=== PATIENT | male | born 1935 | race Caucasian/White ===

== ENCOUNTER 2019-11-07 15:19 | Inpatient (IN) | payer OTHER ==
[~2019-11-07] VITALS: Ht 170.2 cm; Wt 73.0 kg
[2019-11-07] MEDS ORDERED: PAIN RELIEF325 MG PO (15:37)
[2019-11-07] MEDS ORDERED: PROAIR HFA8.5 GM INH (15:39)
[2019-11-07] MEDS ORDERED: NORVASC 2.5 MG2.5 M1 PO (15:41)
[2019-11-07] MEDS ORDERED: AUGMENTIN 875-1 EACH PO (15:43)
[2019-11-07] MEDS ORDERED: ASA81BEC PO (15:44)
[2019-11-07] MEDS ORDERED: ATENOLOL 100MG100 MG PO (15:45)
[2019-11-07] MEDS ORDERED: BACLOFEN 10MG T10 MG PO (15:46)
[2019-11-07] MEDS ORDERED: CALCIUM CARBON500 MG PO (15:47)
[2019-11-07] MEDS ORDERED: CAPSAICIN42.5 GM TOP (15:48)
[2019-11-07] MEDS ORDERED: QUESTRAN PACKET4 GM PO (15:50)
[2019-11-07] MEDS ORDERED: CHLORTHALIDONE25 MG PO (15:50)
[2019-11-07] MEDS ORDERED: CRESTOR5 MG PO (15:51)
[2019-11-07] MEDS ORDERED: VOLTAREN GEL 1100 G1 TOP (15:54)
[2019-11-07] MEDS ORDERED: DICLOFENAC 0.1% EA. EYE (16:03)
[2019-11-07] MEDS ORDERED: DULCOLAX STOOL100 M1 PO (16:04)
[2019-11-07] MEDS ORDERED: FOLIC ACID1 MG PO (16:05)
[2019-11-07] MEDS ORDERED: PROSCAR 5MG TABL5 M1 PO (16:05)
[2019-11-07] MEDS ORDERED: IPRAT-ALBUT 0.5-3 ML NEB (16:07)
[2019-11-07] MEDS ORDERED: CULTURELLE KID1 EAC1 PO (16:11)
[2019-11-07] MEDS ORDERED: LIDOCAINE 2%2 %/5 GM TOP (16:17)
[2019-11-07] MEDS ORDERED: LORATIDINE 10 M10 M1 PO (16:18)
[2019-11-07] MEDS ORDERED: LOPERAMIDE2 MG PO (16:18)
[2019-11-07] MEDS ORDERED: MAGNESIUM250 M1 PO (16:19)
[2019-11-07] MEDS ORDERED: SUPER THERAVIT1 EACH PO (16:20)
[2019-11-07] MEDS ORDERED: OMEPRAZOLE 20 M20 M1 PO (16:22)
[2019-11-07] MEDS ORDERED: PERCOCET 5-3251 EACH PO ×2 (16:23→16:27)
[2019-11-07] MEDS ORDERED: RAYOS5 MG (16:39)
[2019-11-07] MEDS ORDERED: GAS RELIEF80 MG PO (16:40)
[2019-11-07] MEDS ORDERED: TOBI PODHALER28 MG (16:43)
[2019-11-07] MEDS ORDERED: VITAMIN D3400 UNI2 PO (16:44)
[2019-11-07 18:31] VITALS: BP 136/66
--- NOTE | 2019-11-07 19:53 | NUR ---
PATIENT ARRIVED TO UNIT VIA W/C. ALERT AND ORIENTED X4. ORIENTED TO ROOM AND BED CONTROLS. CHAIR ALARM IN PLACE. CALL LIGHT WITHIN REACH.
[2019-11-07 20:12] VITALS: BP 141/72
--- NOTE | 2019-11-08 00:36 | NUR ---
ASSUMED CARE AT 1930. PATIENT IN W/C. PROPELS SELF EASILY AROUND IN ROOM. TAKES PILLS WHOLE, LARGE ONES SEPARATE. KNOWS MEDICINE ROUTINE. EDUCATED IN REHAB ROUTINE, INCLUDING MEAL TIMES, WHEN THERAPIES START TOMORROW, WAIT FOR NURSE BEFORE RISING. NEEDS CUEING WITH LOCKING W/C. C/O HX CHRON'S. TO TOILET TO HAVE BM AND VOIDED. DOES OWN DENTURE CARE. HAS ONE HEARING AIDE. VERY [place] EVEN WITH HEARING AIDE. U/A OBTAINED. PVR WAS 550, C/O PROSTATE PROBLEMS, ON PROSCAR. WILL TRY AGAIN LATER. WILL TRY URINAL LATER. WEARS O2 2L/NC AT HS ONLY. HAD BREATHING TREATMENTS PER ORDER. MEDICATED FOR PAIN. HOURLY ROUNDS CONTINUE. BED ALARM ON. CALL LITE IN REACH.
[2019-11-08 00:54] LABS: URINE BILIRUBIN NEGATIVE (Negative); URINE BLOOD 1+ (Negative); URINE CLARITY CLEAR; URINE COLOR YELLOW; URINE GLUCOSE-RANDOM NEGATIVE (Negative); URINE KETONES NEGATIVE (Negative); URINE LEUKOCYTES-REFLEX NEGATIVE (Negative); URINE NITRITE-REFLEX NEGATIVE (Negative); URINE PROTEIN TRACE (Negative); URINE UROBILINOGEN 0.2 E.U./dl (0.2-1.0)
[2019-11-08 01:32] LABS: BACTERIA-REFLEX >30 Many /HPF (None Seen); CASTS None Seen /LPF (None Seen); MUCUS 4-6 Moderate strn/LPF (None Seen); SQUAMOUS 0-3 Few /LPF (0-3); WBC CLUMPS Few (None Seen)
[2019-11-08 01:33] LABS: CRYSTALS None Seen /LPF (None Seen)
[2019-11-08 04:12] LABS: HEMATOCRIT 39.5 % (42.0-52.0); MCH 28.6 pg (26.0-34.0); MCHC 32.8 g/dL (28.0-37.0); MCV 87.3 fL (80.0-100.0); MPV 9.5 fl. (7.2-11.1); RBC 4.53 mil/uL (4.50-6.00); RDW-CV 15.8 % (10.5-14.5); WBC 13.9 thou/uL (4.0-11.0)
[2019-11-08 04:19] LABS: CALCIUM 8.7 mg/dL (8.5-10.1); CREATININE 1.7 mg/dL (0.6-1.3)
--- NOTE | 2019-11-08 04:44 | NUR ---
VOIDED 375 PER URINAL. BLADDER SCANNED IMMEDIATELY AFTER, 575 ML. PATIENT REFUSED CATHETERIZATION, EVEN WHEN EXPLAINED IT WOULD BE "IN AND OUT" OR JUST A STRAIGHT CATH. PATIENT STATES, "I JUST GOT THAT CATHETER OUT, YOU ARE NOT GONNA PUT ANOTHER ONE IN."
--- NOTE | 2019-11-08 05:19 | NUR ---
ONLY SLEPT FOR A FEW HOURS IN BED. SLEEPING IN W/C WITH LEGS ON HIS BED. WOULD NOT OFFLOAD BOTTOM DESPITE EDUCATION REGARDING SKIN CARE AND OFFER TO GO TO RECLINER. NEEDS REMINDERS EVERY TIME TO LOCK BRAKES. IMPULSIVE AND LACKS INSIGHT TO SAFETY NEEDS AT TIMES. MUCH CUEING GIVEN THROUGH SHIFT. NO FURTHER VOIDS SINCE LAST NOTE. TAKES BREATHING TREATMENTS WITHOUT DIFF. NO FURTHER C/O PAIN. HOURLY ROUNDS CONTINUE. BED ALARM ON. CALL LITE IN REACH.
[2019-11-08 08:39] VITALS: BP 122/67
--- NOTE | 2019-11-08 15:52 | NUR ---
ASSUMMED CARE OF PT AT 0730, PT ALERT AND ORIENTED, IMPULSIVE, UP WITH GB AND CANE/WALKER, PT TAKING FOOD AND FLUIDS WELL, PT ASK QUESTIONS AND HAS CONCERNS ABOUT WHY THINGS ARE BEING DONE, PT DENIED PAIN THIS SHIFT, REFUSED OINTMENTS TO SHOULDERS, PT O2 SATS 93-94 % ON RA, PT VOIDED IN TOILET FOR THERAPY THIS AM, PT ENCOURAGED TO ATTEMPT TO VOID THIS AFTERNOON, PT VOIDED STANDING AT TOILET 200CC OF YELLOW URINE AT 1420, PT SCANNED FOR 691CC AND PT ST CATHED FOR 625CC. PT DOES NOT SEEM TO UNDERSTAND THE REASON HE NEEDS TO BE CATHED, EDUCATION DONE AND WILL NEED REINFORCEMENT. PT PARTICPATED IN ALL THERAPIES BUT QUESTIONS WHY HE NEEDS THE THERAPIES, HERE THIS PM, HOURLY ROUNDING COMLPETED, ALARMS ON FOR SAFETY, ASSESSMENT COMPLETE, WILL CONTINUE TO MONITOR.
[2019-11-08 20:11] VITALS: BP 146/65
--- NOTE | 2019-11-08 22:38 | NUR ---
ASSUMED CARE AT 1930. PATIENT IN W/C. MORE COMPLIANT WITH SAFETY PRECAUTIONS. UP TO TOILET WITH CANE, GAIT BELT. HAD LOOSE BM, STATES LONG HISTORY OF CHRON'S. THEN STATED THAT HE WOULD JUST TAKE "ONE OF HIS PILLS" WHICH HE PRODUCED WHICH WAS GENERIC IMMODIUM. HE STATES HE IS TO TAKE ONE AFTER EACH LIQUID BM UP TO 8/DAY. CALL PLACED TO DR. HARVEY, ORDERS RECEIVED FOR IMMODIUM HE TAKES AT HOME. PATIENT TOLD TO SEND MEDS HOME AND NOT TAKE HIS MEDS, AND ONLY TAKE OURS. ONE DOSE OF IMMODIUM GIVEN BY THIS NURSE FROM HOSPITAL STOCK SOON POSSIBLE AFTER ORDER RECEIVED, SEE MAR. AFTER TAKING HOSPITAL DOSE OF IMMODIUM, HE STATED HE TOOK ONE EARLIER, BUT DIDN'T REMEMBER WHEN. INSTRUCTIONS AGAIN REINFORCED THAT HE IS TO ONLY TAKE HOSPITAL MEDS SO NOT TO DOUBLE DOSE. PATIENT REFUSED TO HAVE HOME MEDS SENT TO PHARMACY, AND PROMISES THEY WILL BE SENT HOME TOMORROW. BLADDER SCANNED AFTER VOIDING WITH BM, 444 ML OBTAINED. HE STATES HE HAS NO SENSATION WHEN HE HAS TO VOID, AND IS RELUCTANT TO HAVE CATHETERIZATION WITH C/O CONCERN OF INFECTION. EDUCATED THAT LEAVING URINE IN THE BLADDER WILL LEAD TO INFECTIONS, AND NEED TO EMPTY BLADDER. STATES HE WAS TOLD TO DRINK 2 LITERS OF FLUID A DAY AND HE HAS NOT BEEN DOING THAT WHILE HERE. CHEWS PILLS DESPITE EDUCATION THAT CHEWING ANTIBIOTICS CAN CHANGE THE ONSET AND DURATION OF THE MEDS. DENIES PAIN, BUT DID ALLOW VOLTERAN OINTMENT TO BACK AND SHOULDERS. IN W/C ON WAFFLE CUSHION. HOURLY ROUNDS CONTINUE. BED ALARM ON. CALL LITE IN REACH.
--- NOTE | 2019-11-08 23:59 | NUR ---
PATIENT STATES THAT HAS HAD A TURP SOMETIME AFTER 2005 WHICH IS WHEN [place], BUT HE COULD NOT GET MORE SPECIFIC THAN THAT. HE DENIES ANY PROBLEMS WITH VOIDING UNTIL 10 DAYS AGO WHEN HE WENT TO [facility], ALTHOUGH HE STATES THAT HE DOES NOT HAVE THE SENSATION THAT IS BLADDER IF NOT EMPTIED. EDUCATION ABOUT URINARY RETENTION GIVEN AND NEED FOR CATH TO EMPTY BLADDER TO PREVENT INFECTION OR INJURY.
--- NOTE | 2019-11-09 05:02 | NUR ---
RESTED IN BED AFTER ABOUT 0100. DENIES SLEEPING. RESTLESS THROUGH NIGHT. UP THREE TIMES WITH LOOSE BMS THAT HE ATTRIBUTES TO CHRON'S DISEASE. HAS TAKEN A TOTAL OF THREE IMMODIUM FROM THIS NURSE. TOLERATES BREATHING TREATMENTS WELL. VOIDS SOME WITH BMS. DOES OWN HYGIENE. NEEDED CUEING TO USE SOAP WITH WASHING HANDS. UP WITH CANE, UNSTEADY AT TIMES, MAINLY BECAUSE HE IS IN SUCH A HURRY TO HAVE BM. WEARING PULLUPS. MEDICATED ONCE FOR PAIN, SEE JAN. HOURLY ROUNDS CONTINUE. BED ALARM ON. CALL LITE IN REACH AND PATIENT HAS BEEN USING IT APPROPRIATELY THIS SHIFT. THUS FAR MUCH LESS IMPULSIVE COMPARED TO LAST NIGHT.
[2019-11-09 07:51] VITALS: BP 113/60
--- NOTE | 2019-11-09 16:16 | NUR ---
ASSUMMED CARE OF PT AT 0730, PT ALERT AND ORIENTED, FORGETFUL, IMPULSIVE, PT TRANSFERS WITH SBA, GB WALKER, PT DENIES PAIN AND NEED FOR PAIN OINTMENTS, PT HAD BM X 2 THIS SHIFT, PT DID SET OFF ALARMS X 2 AND FOUND STANDING WHEN ENTERED ROOM, PT DOES USE CALL LIGHT APPROPRIATELY AT TIMES, PT COMPLAINS OF FATIGUE AND STATES HE NEEDS TO GO HOME HE CAN'T SLEEP IN HOSPITAL, PT DID SLEEP THIS PM, AT 1130 PT DID VOID 400CC, SCANNED FOR 641 CC, AND ST CATHED FOR 550CC, FLOMAX STARTED, HUITRON PLACED PER ORDER, UA SENT TO LAB, TAKING FOOD AND FLUIDS WELL, HOURLY ROUNDING COMPLETED, ASSESSMENT COMPLETE, WILL CONTINUE TO MONITOR.
[2019-11-09 16:25] LABS: URINE BILIRUBIN NEGATIVE (Negative); URINE BLOOD NEGATIVE (Negative); URINE CLARITY CLEAR; URINE COLOR YELLOW; URINE GLUCOSE-RANDOM NEGATIVE (Negative); URINE KETONES NEGATIVE (Negative); URINE LEUKOCYTES-REFLEX NEGATIVE (Negative); URINE NITRITE-REFLEX NEGATIVE (Negative); URINE PROTEIN NEGATIVE (Negative); URINE UROBILINOGEN 0.2 E.U./dl (0.2-1.0)
[2019-11-09 19:30] VITALS: BP 110/66
--- NOTE | 2019-11-09 21:09 | NUR ---
ASSUMED CARE AT 1930. PATIENT WHEELING SELF IN W/C IN ROOM. HUITRON DRAINING HAY[place]E URINE. INSTRUCED REPEATEDLY TO CALL BEFORE GETTING UP FOR FALL PRECAUTIONS AND TO AVOID PULLING ON CAHETER. TAKES PILLS WHOLE WIHT WATER BUT CHEWS ANTIBIOTIC DESPITE EDUCATION NOT TO. DENIES PAIN. READING NEWSPAPER. HOURLY ROUNDS COONTINUE. ALARMS FOR SAFETY. CALL LITE IN REACH.
--- NOTE | 2019-11-10 05:48 | NUR ---
RESTED IN BED AFTER ABOUT 2229, APPEARED SLEEPING AT TIMES. TURNS SELF. HAD ONE LIQUID BM PER TOILET. MUCH LESS IMPULSIVE. UP WITH CANE, GAIT BELT, AND NURSING HOLDING HUITRON BAG. EVEN USING CANE, HE STEADYS HIMSELF ON SINK, ON DOORWAY WHEN PASSING BY EN ROUTE TO TOILET. ATTEMPTED TO EDUCATE ABOUT HOLDING ONTO HUITRON BAG WHEN WALKING, KEEPING IT BELOW THE LEVEL OF HIS BLADDER, HE KEPT INTERRUPTING STATING THAT HE HAS HAD A HUITRON BEFORE. HE LATER ADMITTED HE NEVER WENT HOME WITH ONE, AND HAS ONLY HAD A HUITRON WHEN HE HAS BEEN IN THE HOSPITAL TOO SICK TO AMBULATE MUCH. CONTINUED EDUCATION NEEDED REGARDING HUITRON CARE. HOURLY ROUNDS CONTINUE. BED ALARM ON. CALL LITE IN REACH.
[2019-11-10 08:14] VITALS: BP 127/62
--- NOTE | 2019-11-10 15:01 | NUR ---
Nutrition: Pt admitted to rehab with debility. Eating 100% of heart healthy diet. BG 145, no albumin recorded. Wt: 161#. +BM. No nutrition concerns at this time. Will follow weekly. Low risk.
--- NOTE | 2019-11-10 15:53 | NUR ---
ASSUMED CARE AT 0730. ALERT ORIENTED PLEASANT COOPERATIVE. HX OF DEBILITY AND ACUTE RESP FAILURE. PT. IS SITTING UP IN W/C AT BEDSIDE. HUITRON PATENT WITH HAY[place]E URINE TO DD BAG. TRANSFERS WITH SBA G BELT AND WALKER. PARTICIPATING IN THERAPIES THROUGHOUT THE DAY. TO DR FOR MEALS. FEEDS SELF APPETITE GOOD. P.T. TOOK W/C USING CANE BUT WALKER REMAINS IN ROOM PER P.T. TAKES MEDS WITHOUT DIFFICULTY.
--- NOTE | 2019-11-10 16:27 | NUR ---
SW met with pt to complete initial assessment, introduce self, and SW role on inpt rehab unit. Pt alert, oriented. Pt lives at home with and has a dtr Kerri Miller. Pt mentioned a son who has mental health concerns and pt eluded to wanting to be independent and not be a burden to his . Pt said that he felt he would be ready to dc soon and SW explained team conference on Sunday to discuss pt progress, goals, dc planning and that Dr Garibay and SW would update pt after team conference. Pt has 2 canes at home but not a RW. SW to continue to follow to assist with safe dc planning.
--- NOTE | 2019-11-10 18:42 | NUR ---
PT. WAS SOMEWHAT UPSET ABOUT NO W/C PER THERAPY BUT EXPLAINED TO HIM SAFETY ISSUES NOT LOCKING YOUR W/C BRAKES WHEN ADJUSTING YOUR POSITION IN W/C FALL PRECAUTIONS OFFERED TO WALK HIM IN HALLS SO HE DOESNT FEEL CONFINED TO CHAIR OR BED. HE SEEMED SATISFIED WITH THIS AND WE TOOK TWO TURNS AROUND THE UNIT WITH WALKER GAIT BELT.
[2019-11-10 20:00] VITALS: BP 128/71
--- NOTE | 2019-11-11 05:25 | NUR ---
ASSUMED CARES AT 1920. ALERT AND ORIENTED. LIKES TO BE ABLE TO DO THINGS HIMSELF. PERCOCET GIVEN FOR SHOULDER/HAND PAIN. HUITRON CATHETER DD YELLOW URINE. MIN ASSIST WITH GAIT BELT AND CANE. UNSTEADY GAIT. NEEDS REMINDING TO CARRY HUITRON BAG WHEN UP. SLEPT OFF AND ON MOST OF THE NIGHT. USING CALL LIGHT APPROPRIATELY. BED ALARM ON.
[2019-11-11 07:26] VITALS: BP 133/70
--- NOTE | 2019-11-11 09:58 | NUR ---
PT WAS FEELING LIKE HE WAS WHEEZING THIS AM. O2 PLACED FOR COMFORT. LUNG SOUNDS WERE CLEAR WITH RESPIRATIONS EVEN AND UNLABORED.PT FEELING BETTER NOW AND WORKING WITH THERAPIES. PT ALSO C/O NASAL CONGESTION AND WANTS FLONACE AND MUCINEX ORDERED.WILL DISCUSS WITH ROUNDING DOCTOR.
--- NOTE | 2019-11-11 16:56 | NUR ---
PT HAS WORKED WITH THERAPIES AND HAS CALLED TO TRANSFERR TO CHAIR. PRN FOR PAIN GIVEN THIS AM WITH GOOD EFFECT. PT IS ALERT AND ORIENTATED BUT VERY [place]. HUITRON TO DD WITH CLEAR YELLOW URINE PRESENT. HUITRON TO BE DC'D IN AM FOR VOIDING TRIAL.PT HAS EATEN LUNCH IN DINNINGROOM.
[2019-11-11 19:48] VITALS: BP 105/65
--- NOTE | 2019-11-12 01:12 | NUR ---
ASSUMED CARE @ 1944-11/11-SUNDAY.SITS EDGE OF BED.HUITRON CATHETER IN PLACE & PATENT.PRN IMMODIUM GIVEN ORAL @ 2015-PER PT'S REQUEST.DID ORAL CARE @ 2044 BY SINK W/ SBA.BED ALARM PUT ON @ 2049.02 2L/NC PUT ON ALSO @ 2049 FOR NIGHT USE.WANTS LIGHT ON ALL NIGHT ABOVE BED.WANTS ALSO SIDERAILS X3 UP.SEE PAIN MANAGEMENT @ 2114.RESP TX GIVEN @ 2249.ON HOURLY ROUNDS.
--- NOTE | 2019-11-12 05:48 | NUR ---
SLEEPING SINCE 2200 TO 0300.AWAKE @ 0400.UNABLE TO GO BACK TO SLEEP.WATCHING TV & READING NEWSPAPER @ 0400.TOOK COFFEE X3 DURING NIGHT W/ ELAINE CRACKERS 2 PACKAGES.ATE ALL VANILLA ICE CREAM HS SNACK.BRP W/ ASSIST X1 FOR LARGE BM @ HS.TO DISCONTINUE HUITRON @ 0700-PER DR'S ORDER.
[2019-11-12 08:00] VITALS: BP 131/69
--- NOTE | 2019-11-12 16:12 | NUR ---
ALERT AND ORIENTED X4. UP WITH STAND BY ASSIST, GAIT BELT AND CANE. NEEDS CUEING AT TIMES WITH CARES AND AMBULATION. CONTINENT OF BOWEL AND BLADDER. USED PAIN MEDICATION CREAMS TO HELP WITH JOINT PAINS. HARD OF HEARING, USES 1 HEARING AID AT TIMES. CONTINUES ON PO ANTIBIODICS AT THIS TIME. LUNG SOUNDS DIMINISHED. BED ALARM AND CHAIR ALARM USED. CALL LIGHT WITHIN REACH.
--- NOTE | 2019-11-12 18:16 | NUR ---
SUKHDEV and Dr Garibay met with pt to review team conference summary and plan for pt to remain on rehab unit a few more days to continue therapies and team to reassess pt length of stay on Sunday. SUKHDEV called pt to review team conference summary and dc planning but she did not answer so SW left a detailed message requesting call back. SW to continue to follow to assist with safe dc planning.
--- NOTE | 2019-11-12 19:35 | NUR ---
BLADDER SCANNED AFTER VOIDING SHOWED 441ML OF URINE STILL IN BLADDER. DR NOTIFIED AND NEW ORDERS NOTED. STRAIGHT CATH DONE WITH RETURN OF 400ML OF CLEAR YELLOW URINE.
[2019-11-12 20:35] VITALS: BP 136/67
--- NOTE | 2019-11-12 20:35 | NUR ---
PATIENT ASLEEP UNTIL NOW. UP TO THE BATHROOM TO VOID. AMBULATES WITH SBA, GAITBELT, CANE. DID OWN ORAL CARE. DOESN'T WANT TO WEAR NASAL CANNULA OXYGEN. CALL LIGHT WITHIN REACH.
--- NOTE | 2019-11-13 05:35 | NUR ---
UP X ABOUT 0230 AND AMBUATED IN HALLWAYS WITH SBA, GAITBELT, WALKER. USED WALKER PER PATIENT'S REQUEST. AT 0305 STRAIGHT CATH DONE DUE TO BLADDER SCAN SHOWING 633ML. 350 YELLOW URINE OBTAINED. SAT UP IN CHAIR FROM ABOUT 0400 TO 0430 THEN RETURNED TO BED. 02 SAT THIS AM 87% ON ROOM AIR. RESPIRATORY PLACED PATIENT ON 02 NC AT 2 LITERS. PATIENT REFUSED TO BE PLACED ON OXYGEN EARLIER IN THE SHIFT. HOURLY ROUNDING IN PROGRESS.
[2019-11-13 07:35] VITALS: BP 117/68
--- NOTE | 2019-11-13 17:57 | NUR ---
PT HAS WORKED WITH THERAPIES AND AMBULATES WITH CANE AND GAITBELT AND SBA ASSIST OF 1. PT REPORTS VOIDING WELL WHEN OFFERED TOILETING.PT REMAINS ALERT BUT OCCASIONALLY FORGETS TO CALL FOR ASSIST ALARMS IN USE.
[2019-11-13 19:42] VITALS: BP 135/63
--- NOTE | 2019-11-13 22:17 | NUR ---
ASSUMED CARE AT 1930. PATIENT RESTING IN BED AT CHANGE OF SHIFT. TURNS SELF. TAKES PILLS WHOLE WITH WATER. MEDICATED FOR PAIN WITH PERCOCET AND VOLTERAN OINT. HAD ONE LOOSE BM PER TOILET, DID OWN CARES. TOOK ONE IMMODIUM PER ORDER. SEE JAN. REFUSED O2, WAS 97% ON RA. CALL LITE IN REACH. BED ALARM ON. HOURLY ROUNDS CONTINUE.
--- NOTE | 2019-11-14 06:18 | NUR ---
APPEARED TO BE SLEEING OFF AND ON THROUGH NIGHT. AWOKE FOR BMS, GIVEN IMMODIUM AFTER EACH BM, SEE MAR. TOLERATED BREATHING TREATMENTS. TURNS SELF. VOIDED WITH BMS. MEDICATED FOR PAIN AT HS. TURNS SELF. HOURLY ROUNDS CONTINUE. BED ALARM ON. CALL LITE IN REACH.
[2019-11-14 08:00] VITALS: BP 126/66
--- NOTE | 2019-11-14 15:37 | NUR ---
ASSUMMED CARE OF PT AT 0730, PT ALERT AND ORIENTED, FRUSTRATED, PT TRANSFERS SBA WITH CANE, GB, VOIDS PER TOILET, LOOSE BM X 3, IMMODIUM GIVEN X 1, ATE LUNCH IN DININGROOM, DENIES PAIN, TAKING FOOD AND FLUIDS WELL, PARTICIPATED IN ALL THERAPIES, HOURLY ROUNDING COMPLETED, ASSESSMENT COMPLETE WILL CONTINUE TO MONITOR.
[2019-11-14 20:18] VITALS: BP 130/63
--- NOTE | 2019-11-15 00:41 | NUR ---
ASSUMED CARE @ 1924-11/14-SUNDAY.APPEARS SLEEPING IN BED W/HOB UP.BED ALARM ALREADY ON @ 1924.AWAKENED @ 2029-FOR HS MEDS.SITS EDGE OF BED @ 2029.SEE PAIN MANAGEMENT @ 2113.O2 2L/NC PUT ON @ 2113 FOR NIGHT USE.ON HOURLY ROUNDS. KISS MIXER DOING ODD HOUR ROUNDS.PATIENT TOOK OFF LEFT HEARING AID @ HS.
--- NOTE | 2019-11-15 05:36 | NUR ---
SLEEPING SINCE 1924 & SLEPT GOOD.AWAKE 2X @ 0200 & 0400-for brp FOR BM'S.BRP X3.BM'S X3.INC BM X1 @ 0400.PRN IMMODIUM 2 MG ORAL GIVEN @ 0412.WANTS TO WEAR PULL UPS AFTER INC BM @ 0412.TOOK ALL VANILLA ICE CREAM W/ 2 PACKAGES ELAINE CRACKERS HS SNACKS.AT [id number]/1555-LST-[id number] COFFEE W/ ELAINE CRACKERS & GIVEN.
[2019-11-15 08:16] VITALS: BP 133/52
--- NOTE | 2019-11-15 15:01 | NUR ---
ASSUMED CARE AT 0730. ALERT ORIENTED PLEASANT COOPERATIVE. HX OF DEBILITY. TRANSFERS WITH SBA G BELT AND CANE. AMBULATES TO DR FOR LUNCH. APPETITE GOOD FEEDS SELF AND TAKES MEDS WITHOUT DIFFICULTY. DENIES PAIN OR CONCERNS. VOIDS IN TOILET ABLE TO DO HYGEINE AND CLOTHING ADJUSTMENTS. PARTICIPATING IN THERAPIES THROUGHOUT THE DAY. USES CALL LIGHT APPROPRIATELY FOR ASSISTANCE.
[2019-11-15 19:20] VITALS: BP 129/63
--- NOTE | 2019-11-16 00:54 | NUR ---
ASSUMED CARE @ 1924-11/15-SAT.APPEArs sleeping in bed w/ hob up 45 DEGREES. WANTS ONLY SIDERAILS X2 UP.BED ALARM PUT ON @ 1924.WEARS PULL UPS.AWAKE @ 1934.O2 2L/NC PUT ON @ 2109 FOR NIGHT USE.ON HOURLY ROUNDS.HEALTHCARE FINANCIAL ANALYST DOING ODD HOUR ROUNDS.
--- NOTE | 2019-11-16 06:09 | NUR ---
SLEEPING SINCE 192.AWAKE @ INTERVALS FOR BM X4.INC.BM X1.TOOK ALL VANILLA ICE CREAM & 2 PACKAGES ELAINE CRACKERS HS SNACKS.
[2019-11-16 07:40] VITALS: BP 135/66
--- NOTE | 2019-11-16 16:48 | NUR ---
PT A&OX4 VSS. PT UP SBA WITH GAIT BELT AND CANE. GAIT STEADY. PT IS ACCUCHECK, NO MEDS TO CONTROL GLUCOSE ORDERED. PT SATS 96% ON RA. DENIES PAIN AT THIS TIME. PT UP WITH PT THIS SHIFT. PT STILL ON PREDNISONE PO. PT RESTS IN ROOM WITH CALL LIGHT IN REACH. WILL CONTINUE TO MONITOR
[2019-11-16 19:30] VITALS: BP 119/66
[2019-11-17 08:12] VITALS: BP 119/57
[2019-11-17] MEDS ORDERED: FLOMAX0.4 MG PO (09:50)
[2019-11-17] MEDS ORDERED: DICLOFENAC SOD2.5 ML EA. EYE (11:56)
[2019-11-17 12:07] VITALS: BP 119/57
--- NOTE | 2019-11-17 14:51 | NUR ---
ASSUMMED CARE OF PT AT 0730, PT ALERT AND ORIENTED, TRANSFERS WITH SBA, GB CANE, DENIES PAIN, TAKING FOOD AND FLUIDS WELL, HOURLY ROUNDING COMPLETED, AMBULATED TO DININGROOM FOR LUNCH, VOIDS PER TOILET, HAD BM X 2 THIS SHIFT, REQUESTS IMMODIUM X 1, PARTICIPATED IN ALL THERAPIES, ORDERS OBTAINED FOR DISCHARGE, PT AND SPOUSE EDUCATED ON DISCHARGE ORDERS, DISCUSSED HOME MEDICATIONS AND PT STATED HE HAD ALL MEDS AT HOME AND IF NEEDED [facility], DISCUSSED FOLLOW UP APPTS, WHEN TO CALL PHYSICIAN, LOW SODIUM DIET, FALL PRECAUTIONS, PT STATES WILL ASK PCP ABOUT OUTPT SPEECH THERAPY, QUESTIONS ANSWERED, PT DISCHARGED PER AMBULATION AND WITH BELONGING TO MAIN ENTRANCE.
--- NOTE | 2019-11-17 16:05 | NUR ---
Team conference held today. SUKHDEV and Dr Garibay met with pt to review team conference summary and plan for pt to be able to dc home with today. SW discussed team's recommendation for pt to continue [facility] and pt said that [facility] and pt and pt (who visited pt later and spoke with SW) [facility] and with possible [facility] as well. No DME needs, no other dc needs expressed.
== END 2019-11-17 14:15 | disposition home or self-care (01) | DRG 190 ==
LOC: M.REH 15:19
PROVIDERS: Internal Medicine; ADMIT Physical Medicine & Rehabilitation
DX: J44.1 Chronic obstructive pulmonary disease with (acute) exacerbation (principal); J18.9 Pneumonia, unspecified organism; I50.33 Acute on chronic diastolic (congestive) heart failure; K50.90 Crohn's disease, unspecified, without complications; I13.0 Hypertensive heart and chronic kidney disease with heart failure and stage 1 through stage 4 chronic kidney disease, or unspecified chronic kidney disease; R53.81 Other malaise; D64.9 Anemia, unspecified; N18.9 Chronic kidney disease, unspecified; I25.10 Atherosclerotic heart disease of native coronary artery without angina pectoris; E78.5 Hyperlipidemia, unspecified; K21.9 Gastro-esophageal reflux disease without esophagitis; J44.0 Chronic obstructive pulmonary disease with (acute) lower respiratory infection; Z86.73 Personal history of transient ischemic attack (TIA), and cerebral infarction without residual deficits; Z88.8 Allergy status to other drugs, medicaments and biological substances